=== PATIENT | female | born 2000 | race Hispanic/Latino ===

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

== ENCOUNTER 2019-05-10 15:00 | Emergency (ER) | payer MEDICAID, OTHER ==
[2019-05-10 15:55] LABS: APPEARANCE,URINE Cloudy (CLEAR); BILIRUBIN,URINE Negative (NEGATIVE); COLOR,URINE Yellow (YELLOW); GLUCOSE, URINE (UA) Negative (NEGATIVE); KETONES,URINE Negative (NEGATIVE); LEUKOCYTE ESTERASE ,URINE Moderate (NEGATIVE); NITRATE,URINE Negative (NEGATIVE); OCCULT BLOOD,URINE Negative (NEGATIVE); PROTEIN,URINE Negative (NEGATIVE)
[2019-05-10 16:01] LABS: HCG,QUAL RESULT POSITIVE (NEGATIVE)
[2019-05-10 16:26] LABS: BASOPHILS % (AUTO) 0.4 % (0.0-5.0); EOSINOPHILS % (AUTO) 9.3 % (0.0-8.0); HEMATOCRIT 40.1 % (36-48); LYMPHOCYTES % (AUTO) 21.8 % (21.0-51.0); MEAN CORPUSCULAR HEMOGLOBIN 28.3 pg (27.0-33.0); MEAN CORPUSCULAR HGB CONC 34.1 g/dL (32.0-36.0); MEAN CORPUSCULAR VOLUME 83.2 fL (80-100); NEUTROPHILS % (AUTO) 59.5 % (40.0-77.0); PLATELET COUNT (AUTO) 200 K/uL (130-400); RED BLOOD CELL COUNT(AUTO) 4.82 MIL/uL (4.00-5.50); RED CELL DISTRIBUTION WIDTH 14.1 % (11.0-15.5); WHITE BLOOD COUNT (AUTO) 8.4 K/uL (4.8-10.8)
[2019-05-10 16:38] LABS: CREATININE 0.7 mg/dL (0.5-1.5); POTASSIUM 3.9 mmol/L (3.5-5.1)
[2019-05-10 16:54] LABS: ALBUMIN 3.2 g/dL (3.5-5.0); BILIRUBIN,TOTAL 0.2 mg/dL (0.2-1.0); TOTAL PROTEIN, SERUM 6.5 g/dL (6.0-8.3)
[2019-05-10 16:56] LABS: BACTERIA,URINE Many /HPF (None Seen)
[2019-05-10 16:57] LABS: RBC,URINE None Seen /HPF (0-1)
[2019-05-10 17:22] LABS: AMPHET/METH SCREEN,URINE NEGATIVE (NEGATIVE); BARBITURATE SCREEN, URINE NEGATIVE (NEGATIVE); BENZODIAZEPINES SCREEN,URINE NEGATIVE (NEGATIVE); CANNABINOID SCREEN,URINE NEGATIVE (NEGATIVE); COCAINE SCREEN,URINE NEGATIVE (NEGATIVE); OPIATE SCREEN,URINE NEGATIVE (NEGATIVE); PHENCYCLIDINE SCREEN,URINE NEGATIVE (NEGATIVE)
== END 2019-05-10 17:42 | disposition home or self-care (01) ==
LOC: EDH 15:00
DX: O26.891 Other specified pregnancy related conditions, first trimester (principal); R10.32 Left lower quadrant pain; R19.7 Diarrhea, unspecified; J45.909 Unspecified asthma, uncomplicated; Z87.891 Personal history of nicotine dependence; Z3A.01 Less than 8 weeks gestation of pregnancy
CPT/HCPCS: 36415; 76801; 80053; 80305; 81001; 81025; 84702; 85025; 86850; 86900; 86901

== ENCOUNTER 2019-05-13 17:23 | Emergency (ER) | payer MEDICAID, OTHER ==
[2019-05-13 18:17] LABS: APPEARANCE,URINE Cloudy (CLEAR); BILIRUBIN,URINE Negative (NEGATIVE); COLOR,URINE Yellow (YELLOW); GLUCOSE, URINE (UA) Negative (NEGATIVE); KETONES,URINE Trace mg/dL (NEGATIVE); LEUKOCYTE ESTERASE ,URINE Moderate (NEGATIVE); NITRATE,URINE Negative (NEGATIVE); OCCULT BLOOD,URINE Negative (NEGATIVE); PH,URINE 5.5 (5.0-8.0); PROTEIN,URINE Negative (NEGATIVE)
[2019-05-13 19:00] LABS: BACTERIA,URINE Few /HPF (None Seen); MUCUS,URINE Few LPF (None Seen); SQUAMOUS EPITHELIAL CELL,UR Moderate /HPF (0-2)
== END 2019-05-13 19:13 | disposition home or self-care (01) ==
LOC: EDH 17:23
DX: O23.41 Unspecified infection of urinary tract in pregnancy, first trimester (principal); O99.511 Diseases of the respiratory system complicating pregnancy, first trimester; J45.909 Unspecified asthma, uncomplicated; Z3A.01 Less than 8 weeks gestation of pregnancy
CPT/HCPCS: 81001

== ENCOUNTER 2019-06-09 15:59 | Emergency (ER) | payer MEDICAID ==
[2019-06-09] MEDS ORDERED: ACETAMINOPHEN EXTRA STRENGTH 500 MG TABLET ONE (16:20)
[2019-06-09 17:32] LABS: RAPID GROUP A STREP NEGATIVE (NEGATIVE)
== END 2019-06-09 17:44 | disposition home or self-care (01) ==
LOC: EDH 15:59
DX: O99.511 Diseases of the respiratory system complicating pregnancy, first trimester (principal); J10.1 Influenza due to other identified influenza virus with other respiratory manifestations; J45.909 Unspecified asthma, uncomplicated; Z79.899 Other long term (current) drug therapy; Z3A.10 10 weeks gestation of pregnancy
CPT/HCPCS: 87804; 87880

== ENCOUNTER 2019-06-10 01:34 | Emergency (ER) | payer MEDICAID ==
[2019-06-10] MEDS ORDERED: ACETAMINOPHEN EXTRA STRENGTH 500 MG TABLET ONE (02:08)
[2019-06-10] MEDS ORDERED: ONDANSETRON HCL 4 MG/2 ML VIAL ONE (02:08)
[2019-06-10 03:11] LABS: BASOPHILS % (AUTO) 0.2 % (0.0-5.0); EOSINOPHILS % (AUTO) 0.5 % (0.0-8.0); HEMATOCRIT 35.2 % (36-48); LYMPHOCYTES % (AUTO) 9.9 % (21.0-51.0); MEAN CORPUSCULAR HEMOGLOBIN 27.3 pg (27.0-33.0); MEAN CORPUSCULAR HGB CONC 33.2 g/dL (32.0-36.0); MEAN CORPUSCULAR VOLUME 82.2 fL (80-100); MONOCYTES % (AUTO) 12.2 % (3.0-13.0); PLATELET COUNT (AUTO) 171 K/uL (130-400); RED BLOOD CELL COUNT(AUTO) 4.28 MIL/uL (4.00-5.50); RED CELL DISTRIBUTION WIDTH 13.4 % (11.0-15.5); WHITE BLOOD COUNT (AUTO) 4.3 K/uL (4.8-10.8)
[2019-06-10 03:26] LABS: CREATININE 0.6 mg/dL (0.5-1.5); POTASSIUM 3.5 mmol/L (3.5-5.1)
[2019-06-10 03:47] LABS: ALBUMIN 3.1 g/dL (3.5-5.0); BILIRUBIN,TOTAL 0.2 mg/dL (0.2-1.0)
== END 2019-06-10 04:44 | disposition home or self-care (01) ==
LOC: EDH 01:34
DX: O20.0 Threatened abortion (principal); O99.511 Diseases of the respiratory system complicating pregnancy, first trimester; O26.891 Other specified pregnancy related conditions, first trimester; E86.0 Dehydration; J10.1 Influenza due to other identified influenza virus with other respiratory manifestations; Z3A.10 10 weeks gestation of pregnancy; J45.909 Unspecified asthma, uncomplicated
CPT/HCPCS: 36415; 76801; 80053; 84702; 85025; 96361; 96374; 99285; J2405

== ENCOUNTER 2019-06-13 16:36 | Emergency (ER) | payer MEDICAID ==
[2019-06-13] MEDS ORDERED: ONDANSETRON HCL 4 MG/2 ML VIAL ONE (17:31)
[2019-06-13] MEDS ORDERED: SODIUM CHLORIDE 0.9% 1000ML 1,000 ML IV ONE (17:31)
[2019-06-13 17:37] LABS: BASOPHILS % (AUTO) 0.2 % (0.0-5.0); EOSINOPHILS % (AUTO) 1.4 % (0.0-8.0); HEMATOCRIT 39.9 % (36-48); LYMPHOCYTES % (AUTO) 48.7 % (21.0-51.0); MEAN CORPUSCULAR HEMOGLOBIN 27.2 pg (27.0-33.0); MEAN CORPUSCULAR HGB CONC 33.8 g/dL (32.0-36.0); MEAN CORPUSCULAR VOLUME 80.4 fL (80-100); MONOCYTES % (AUTO) 8.2 % (3.0-13.0); NEUTROPHILS % (AUTO) 41.3 % (40.0-77.0); PLATELET COUNT (AUTO) 205 K/uL (130-400); RED BLOOD CELL COUNT(AUTO) 4.96 MIL/uL (4.00-5.50); RED CELL DISTRIBUTION WIDTH 13.3 % (11.0-15.5); WHITE BLOOD COUNT (AUTO) 4.3 K/uL (4.8-10.8)
[2019-06-13 17:46] LABS: APPEARANCE,URINE Clear (CLEAR); BILIRUBIN,URINE Negative (NEGATIVE); COLOR,URINE Yellow (YELLOW); GLUCOSE, URINE (UA) Negative (NEGATIVE); KETONES,URINE Negative (NEGATIVE); LEUKOCYTE ESTERASE ,URINE Negative (NEGATIVE); NITRATE,URINE Negative (NEGATIVE); OCCULT BLOOD,URINE Negative (NEGATIVE); PROTEIN,URINE Negative (NEGATIVE); UROBILINOGEN,URINE 0.2 mg/dL (0.2-1.0)
[2019-06-13 17:50] LABS: INR 0.87 (0.85-1.15); PARTIAL THROMBOPLASTIN TIME 26.6 SEC (26.3-35.5); PROTHROMBIN TIME 9.2 SEC (9.6-11.6)
[2019-06-13 18:05] LABS: CREATININE 0.5 mg/dL (0.5-1.5); POTASSIUM 3.6 mmol/L (3.5-5.1)
[2019-06-13 18:31] LABS: ALBUMIN 3.5 g/dL (3.5-5.0); BILIRUBIN,TOTAL 0.2 mg/dL (0.2-1.0); TOTAL PROTEIN, SERUM 7.5 g/dL (6.0-8.3)
== END 2019-06-13 18:50 | disposition home or self-care (01) ==
LOC: EDH 16:36
DX: O21.0 Mild hyperemesis gravidarum (principal); O99.511 Diseases of the respiratory system complicating pregnancy, first trimester; J45.909 Unspecified asthma, uncomplicated; Z87.891 Personal history of nicotine dependence; Z3A.10 10 weeks gestation of pregnancy
CPT/HCPCS: 36415; 71045; 80053; 81003; 82550; 84484; 84702; 85025; 85610; 85730; 93005; 96361; 96374; 99285; J2405; J7030

== ENCOUNTER 2019-07-20 18:59 | Emergency (ER) | payer MEDICAID | END 2019-07-20 19:36 | disposition home or self-care (01) | LOC: EDH 18:59 | DX: O99.89 Other specified diseases and conditions complicating pregnancy, childbirth and the puerperium (principal); H10.9 Unspecified conjunctivitis; O99.512 Diseases of the respiratory system complicating pregnancy, second trimester; J45.909 Unspecified asthma, uncomplicated; Z3A.14 14 weeks gestation of pregnancy; Z79.899 Other long term (current) drug therapy ==

== ENCOUNTER 2019-09-23 20:59 | Emergency (ER) | payer MEDICAID ==
[2019-09-23] MEDS ORDERED: DIPHENHYDRAMINE HCL 25 MG CAPSULE ONE (21:12)
[2019-09-23] MEDS ORDERED: FAMOTIDINE/PF 20 MG/2 ML VIAL IV ONE (21:13)
== END 2019-09-23 22:14 | disposition home or self-care (01) ==
LOC: EDH 20:59
DX: O26.892 Other specified pregnancy related conditions, second trimester (principal); L50.1 Idiopathic urticaria; O99.512 Diseases of the respiratory system complicating pregnancy, second trimester; J45.909 Unspecified asthma, uncomplicated; Z3A.26 26 weeks gestation of pregnancy
CPT/HCPCS: 96374; 99283; J3490; Q0163

== ENCOUNTER 2020-06-09 10:20 | Emergency (ER) | payer MEDICAID ==
[2020-06-09] MEDS ORDERED: METHYLPREDNISOLONE SOD SUCC 125MG/2ML VIAL ONE (11:49)
[2020-06-09] MEDS ORDERED: IPRATROPIUM/ALBUTEROL SULFATE 3 ML SOLUTION IH ONE ×2 (12:08→14:14)
[2020-06-09 12:52] LABS: APPEARANCE,URINE CLOUDY (CLEAR); BILIRUBIN,URINE NEGATIVE (NEGATIVE); COLOR,URINE YELLOW (YELLOW); GLUCOSE, URINE (UA) NEGATIVE (NEGATIVE); HCG,QUAL RESULT NEGATIVE (NEGATIVE); KETONES,URINE NEGATIVE (NEGATIVE); LEUKOCYTE ESTERASE ,URINE SMALL (NEGATIVE); NITRATE,URINE NEGATIVE (NEGATIVE); OCCULT BLOOD,URINE NEGATIVE (NEGATIVE); PROTEIN,URINE NEGATIVE (NEGATIVE); UROBILINOGEN,URINE 0.2 mg/dL (0.2-1.0)
[2020-06-09 13:08] LABS: BACTERIA,URINE Rare /HPF (None Seen); MUCUS,URINE Moderate LPF (None Seen); RBC,URINE 0-1 /HPF (0-1); SQUAMOUS EPITHELIAL CELL,UR Many /HPF (0-2)
== END 2020-06-09 14:55 | disposition home or self-care (01) ==
LOC: EDH 10:20
DX: J45.31 Mild persistent asthma with (acute) exacerbation (principal); Z20.828 Contact with and (suspected) exposure to other viral communicable diseases; Z87.891 Personal history of nicotine dependence; Z98.890 Other specified postprocedural states
CPT/HCPCS: 81001; 81025; 87088; 87426; 94640 ×2; 96374; 99284; J2930; U0003

== ENCOUNTER 2020-06-09 22:37 | Emergency (ER) | payer MEDICAID ==
[2020-06-09] MEDS ORDERED: DEXAMETHASONE SOD PHOSPHATE 10MG/ML 1ML VIAL ONE (23:16)
[2020-06-09] MEDS ORDERED: ACETAMINOPHEN 325 MG TAB ONE (23:17)
[2020-06-09] MEDS ORDERED: ALBUTEROL SULFATE 0.083% 2.5 MG/3 ML INH IH ONE (23:38)
[2020-06-09 23:57] LABS: BASOPHILS % (AUTO) 0.1 % (0.0-5.0); HEMATOCRIT 35.4 % (36-48); LYMPHOCYTES % (AUTO) 4.4 % (21.0-51.0); MEAN CORPUSCULAR HEMOGLOBIN 20.7 pg (27.0-33.0); MEAN CORPUSCULAR HGB CONC 29.4 g/dL (32.0-36.0); MEAN CORPUSCULAR VOLUME 70.5 fL (80-100); MONOCYTES % (AUTO) 1.9 % (3.0-13.0); NEUTROPHILS % (AUTO) 93.3 % (40.0-77.0); PLATELET COUNT (AUTO) 351 K/uL (130-400); RED BLOOD CELL COUNT(AUTO) 5.02 MIL/uL (4.00-5.50); RED CELL DISTRIBUTION WIDTH 17.2 % (11.0-15.5); WHITE BLOOD COUNT (AUTO) 10.5 K/uL (4.8-10.8)
[2020-06-10 00:09] LABS: POTASSIUM 4.1 mmol/L (3.5-5.1)
[2020-06-10 00:17] LABS: ABG BASE EXCESS -5.2 mmol/L (-2.0-3.0); ABG HCO3 19.8 mmol/L (21.0-28.0); ABG OXYGEN SATURATION 94.2 % (95.0-99.0); ABG PCO2 37 mmHg (32-45)
[2020-06-10] MEDS ORDERED: ALBUTEROL SULFATE 0.083% 2.5 MG/3 ML INH IH ONE (01:26)
[2020-06-10] MEDS ORDERED: IOHEXOL-350 75 ML VIAL IV ONE (01:37)
== END 2020-06-10 02:49 | disposition home or self-care (01) ==
LOC: EDH 22:37
DX: J45.31 Mild persistent asthma with (acute) exacerbation (principal); Z20.828 Contact with and (suspected) exposure to other viral communicable diseases
CPT/HCPCS: 36415; 36600; 71045; 71275; 80048; 81001; 81025; 82803; 84702; 85025; 87088; 87426; 94640 ×4; 96372; 96374; 99284; 99285; J1100; J2930; Q9967; U0003

== ENCOUNTER 2021-01-19 10:11 | Emergency (ER) | payer MEDICAID ==
[2021-01-19 10:13] VITALS: BP 129/70
[2021-01-19] MEDS ORDERED: IPRATROPIUM/ALBUTEROL SULFATE 3 ML SOLUTION IH STA (14:10)
[2021-01-19] MEDS ORDERED: SOLU-MEDROL 125MG VIAL IVP ONE (14:30)
[2021-01-19] MEDS ORDERED: IPRATROPIUM/ALBUTEROL SULFATE 3 ML SOLUTION IH ONE (15:41)
[2021-01-19 16:13] LABS: APPEARANCE,URINE Clear (CLEAR); BILIRUBIN,URINE Negative (NEGATIVE); COLOR,URINE Yellow (YELLOW); GLUCOSE, URINE (UA) Negative (NEGATIVE); KETONES,URINE Negative (NEGATIVE); LEUKOCYTE ESTERASE ,URINE Small (NEGATIVE); NITRATE,URINE Negative (NEGATIVE); OCCULT BLOOD,URINE Negative (NEGATIVE); PROTEIN,URINE Negative (NEGATIVE); UROBILINOGEN,URINE 0.2 mg/dL (0.2-1.0)
[2021-01-19 16:16] LABS: HCG,QUAL RESULT NEGATIVE (NEGATIVE)
[2021-01-19 16:25] LABS: BACTERIA,URINE Few /HPF (None Seen); MUCUS,URINE Few LPF (None Seen); SQUAMOUS EPITHELIAL CELL,UR Few /HPF (0-2)
[2021-01-19] MEDS ORDERED: AUD IH (17:52)
[2021-01-19] MEDS ORDERED: PRED20TA3 PO (17:52)
[2021-01-19 18:22] VITALS: BP 124/78
== END 2021-01-19 18:23 | disposition home or self-care (01) ==
LOC: EDH 10:11
DX: J45.901 Unspecified asthma with (acute) exacerbation (principal); Z20.822 Contact with and (suspected) exposure to COVID-19; Z79.52 Long term (current) use of systemic steroids; Z79.899 Other long term (current) drug therapy
CPT/HCPCS: 71045; 81001; 81025; 87426; 87804 ×2; 87880; 94640; 96374; 99284; J2930

== ENCOUNTER 2025-05-17 17:24 | Emergency (ER) | payer SELFPAY ==
[~2025-05-17] VITALS: Ht 170.2 cm; Wt 95.7 kg
[~2025-05-17 17:24] MED LIST: AUD IH; PRED20TA3 PO
--- NOTE | 2025-05-17 17:38 | ERN ---
ED Note History of Present Illness Stated Complaint: ABDOMINAL PAIN Chief Complaint: Abdominal Pain Time Seen by MD: 17:25 Time Seen by Midlevel: 17:25 Dictation: The patient is a 24-year-old female with a history of asthma who presents to the emergency department with complaints of epigastric abdominal pain onset Monday. Patient reports she started with clear vomiting yesterday. Reports she has also had a productive cough and some congestion. Reports clear sputum. Patient reports she took an albuterol treatment before coming for her asthma. Denies any diarrhea or constipation, denies any fevers. Allergies: Coded Allergies: No Known Drug Allergies (Unverified Allergy, Unknown, 06/10/19) Home Meds Active Scripts Prednisone (Prednisone) 20 Mg Tablet, 1 TAB PO BID for asthma for 5 Days, #10 TAB 0 Refills TAKE 1 TAB BY MOUTH THREE TIMES PER DAY X3 DAYS, THEN TAKE 1 TAB BY MOUTH TWICE A DAY X2 DAYS, THEN TAKE 1 TAB BY MOUTH ONCE A DAY X1 DAY. Prov:RUDDY HELLER NP 01/19/21 Albuterol Sulfate (Albuterol Sulfate) 2.5 Mg/0.5 Ml Vial.neb, 2.5 MG IH Q4HPRN for asthma for 30 Days, #120 INH Prov:RUDDY HELLER NP 01/19/21 Past Medical History Past Medical History: Asthma Additional Past Medical Hx: ASTHMA Surgical History: Social History: Negative RN Note Reviewed/Agreed w/PFSH: Yes Review of System Dictation Constitutional: Negative for fever,chills, and weight loss Eyes: Negative for injury, pain,redness, and discharge ENT: Negative for injury,pain or swelling Cardiovascular: Negative for chest pain, palpitations, and edema Respiratory: Negative for shortness of breath,, and wheezing, positive for cough and congestion Abdomen/GI: Negative for diarrhea, and constipation positive for abdominal pain, nausea, vomiting Back: Negative for injury and pain : Negative for injury, bleeding and discharge MS/Extremity: Negative for injury and deformity Skin: Negative for rash, and discoloration Neuro: Negative for headache, weakness, numbness, tingling, and seizure Psych: Negative for suicide ideation, homicidal ideation, and hallucinations Initial Vital Sign VS Vital Signs Date Time Temp Pulse Resp B/P (MAP) Pulse Ox O2 Delivery O2 Flow Rate FiO2 05/17/25 17:25 98.8 122 18 119/77 99 Room Air 05/17/25 18:12 0 21 Physical Exam Dictation Vital Signs reviewed General Appearance: Alert, oriented x 3, no acute distress, well developed, nourished. Head and Face: non-traumatic. Eyes: PERRL, pink conjunctivas, eyelid no trauma, anterior chamber with arcus se nilis. Ears: Pinnas intact and no signs of trauma or erythema ear canals clear and no discharge TM no erythema Nose: No discharge, no bleeding. Oropharynx: Mouth normal, tongue pink. pharynx clear,no erythema, tonsils no exudates, no abscesses noted, mucous membrane moist Neck: Supple, non-tender, no thyromegaly, no masses, no JVD, no bruits Breast:Deferred Chest:No tenderness, no crepitus, no paradoxical movement, no retractions Lungs:Clear, well-ventilated, symmetric, no rales, no wheezing, no rhonchi, no stridor, good breath sounds bilaterally Heart: Regular rate, regular rhythm, no murmur, no gallops Vascular: no peripheral edema, Abdomen: Soft, positive bowel sounds, nondistended, no guarding, Generalized tenderness, no rebound, no masses no hepatomegaly, no splenomegaly, no Thomas's sign, no hernias. Rectal: Deferred Genital: Deferred Neurological: Normal speech, motor function intact, sensory function intact Musculoskeletal: Neck nontender, full range of motion, back nontender, full range of motion, Extremities: nontender, full range of motion Skin: Color pink, dry, no turgor, no rash, no lacerations, no abrasions, no contusions. Lymphatic: Deferred Results (Laboratory/Radiology) Laboratory/Radiology Laboratory Tests Test 05/17/25 17:43 05/17/25 17:53 White Blood Count 5.7 K/uL (4.8-10.8) Red Blood Count 5.11 MIL/uL (4.00-5.50) Hemoglobin 13.9 g/dL (12.0-16.0) Hematocrit 42.3 % (36-48) Mean Corpuscular Volume 82.8 fL (79-99) Mean Corpuscular Hemoglobin 27.2 pg (27.0-33.0) Mean Corpuscular Hemoglobin Concent 32.9 g/dL (32.0-36.0) Red Cell Distribution Width 13.6 % (11.0-15.5) Platelet Count 179 K/uL (130-400) Mean Platelet Volume 11.4 fL (7.5-10.5) H Immature Granulocyte % (Auto) 0.4 % (0-1) Neutrophils (%) (Auto) 84.5 % (40.0-77.0) H Lymphocytes (%) (Auto) 5.3 % (21.0-51.0) L Monocytes (%) (Auto) 9.6 % (3.0-13.0) Eosinophils (%) (Auto) 0.0 % (0.0-8.0) Basophils (%) (Auto) 0.2 % (0.0-5.0) Neutrophils # (Auto) 4.8 K/uL (1.8-7.7) Lymphocytes # (Auto) 0.3 K/uL (1.0-4.8) L Monocytes # (Auto) 0.6 K/uL (0.1-1.0) Eosinophils # (Auto) 0.00 K/uL (0.00-0.70) Basophils # (Auto) 0.01 K/uL (0.00-0.20) Absolute Immature Granulocyte (auto 0.02 K/uL (0-1) Nucleated Red Blood Cells 0.0 % (0.0-0.19) White Cell Morphology Comment See comments Sodium Level 139 mmol/L (136-145) Potassium Level 3.1 mmol/L (3.5-5.1) L Chloride Level 104 mmol/L (101-111) Carbon Dioxide Level 25 mmol/L (21-32) Blood Urea Nitrogen 6 mg/dL (7-18) L Creatinine 0.8 mg/dL (0.5-1.0) Glomerular Filtration Rate Calc 104 mL/min (>90) Random Glucose 84 mg/dL (70-105) Total Calcium 8.3 mg/dL (8.5-10.1) L Total Bilirubin 0.3 mg/dL (0.2-1.0) Direct Bilirubin 0.1 mg/dL (0.0-0.3) Aspartate Amino Transf (AST/SGOT) 20 U/L (10-37) Alanine Aminotransferase (ALT/SGPT) 25 U/L (12-78) Alkaline Phosphatase 49 U/L (50-136) L Troponin I High Sensitivity 4 ng/L (4-50) Total Protein 6.8 g/dL (6.0-8.3) Albumin 3.1 g/dL (3.5-5.0) L Lipase 17 U/L (16-77) Human Chorionic Gonadotropin, Quant 21217 mIU/mL (0-5) H Urine Color LIGHT-ORANGE (YELLOW) Urine Appearance TURBID (CLEAR) Urine pH 5.5 (5.0-8.0) Urine Specific [place] 1.033 (1.001-1.031) Urine Protein 50 mg/dL (NEGATIVE) H Urine Glucose (UA) NEGATIVE mg/dL (NEGATIVE) Urine Ketones NEGATIVE mg/dL (NEGATIVE) Urine Occult Blood NEGATIVE (NEGATIVE) Urine Nitrate NEGATIVE (NEGATIVE) Urine Bilirubin NEGATIVE mg/dL (NEGATIVE) Urine Urobilinogen 0.2 mg/dL (0.2-1.0) Urine Leukocyte Esterase 250 Fany/uL (NEGATIVE) H Urine RBC 6-10 /HPF (0-1) H Urine WBC 2-5 /HPF (0-1) H Urine Squamous Epithelial Cells FEW /HPF (0-2) Urine Other Crystals (Auto) 254 /HPF (None Seen) Urine Amorphous Crystals (Auto) MANY /LPF (None Seen) Urine Bacteria FEW /HPF (None Seen) Urine HCG, Qualitative POSITIVE (NEGATIVE) H Influenza Type A Antigen Positive For Type A Influenza Type B Antigen Negative For Type B SARS-CoV-2 Antigen (Rapid) PRESUMPTIVE NEGATIVE REASON: VAGINAL BLEEDING ORDERING PHYSICIAN: CHARLENE JACOBO PROCEDURE: OB <14 - US OB <14 WEEKS EXAM: US Obstetrical, Complete <14 weeks CLINICAL HISTORY: Patient presents with vaginal bleeding. TECHNIQUE: Transabdominal imaging of the maternal pelvis and a <14-week gestation with image documentation. COMPARISON: None provided. FINDINGS: GESTATION: Gestational age by LMP (03/24/2025): 7 weeks 5 days. Ultrasound gestational age: 5 weeks 2 days. The gestational sac diameter measures 1.77 cm, corresponding to 5 weeks 2 days. A sac-like structure is noted within the endometrial cavity. The heart rate and pole are not visualized at this time. UTERUS: The uterus measures 9.5 5.7 6.6 cm. Unremarkable. No myometrial mass. CERVIX: Closed. Unremarkable. OVARIES: The right ovary is obscured due to increased bowel gas. The left ovary measures 2.5 1.7 2.6 cm with normal flow. FREE FLUID: No free fluid in the cul-de-sac. IMPRESSION: Early intrauterine gestational sac corresponding to 5 weeks 2 days without a pole. Recommend serial quantitative beta-hCG and short interval follow-up. No free fluid. /[facility] Reviewed?: Yes EKG: (+) rhythm (Sinus tachycardia) EKG Comment: Date:05/17/2025 Time:1746 Ventricular rate:109 AR interval:140 QRS duration:96 QT/QTc:323/436 EKG interpretation: Sinus tachycardia, abnormal T-waves anterior leads Reviewed by ED Attending no STEMI ED Course ED Course Orders Procedure Category Date Status Time Cbc With Differential LAB 05/17/25 Complete 17:33 ,Urine Test LAB 05/17/25 Complete 17:33 Urinalysis Profile LAB 05/17/25 Complete 17:33 12 Lead Ekg Tracing- EKG 05/17/25 Complete Technical 17:33 0.9%Nacl 1000ml (Ns PHA 05/17/25 In Process 1000ml) 18:00 Ondansetron 4mg Inj PHA 05/17/25 In Process (Zofran 4mg Inj) 18:00 Pantoprazole 40mg Inj PHA 05/17/25 In Process (Protonix 40mg Inj 18:00 Lipase LAB 05/17/25 Complete 17:33 Basic Metabolic Panel LAB 05/17/25 Complete 17:33 Covid19 (Sars Antigen LAB 05/17/25 Complete Rapid) 17:33 Influenza Type A & B, LAB 05/17/25 Complete Rapid 17:33 Hepatic Function Panel LAB 05/17/25 Complete 17:33 Hcg,Quantitative LAB 05/17/25 Complete 18:10 Us Ob <14 Weeks US 05/17/25 Resulted 18:10 Culture Urine ELVIA 05/17/25 In Process 18:14 Potassium Chloride PHA 05/17/25 In Process 20meq Er (K-Dur/Klor- 18:30 Ceftriaxone 1g Vial PHA 05/17/25 In Process (Rocephine 1g Inj) 18:30 Oseltamivir Phosphate PHA 05/17/25 In Process (Tamiflu) 19:00 Troponin I High LAB 05/17/25 Complete Sensitivity 20:19 Current Medications Medications (Trade) Dose Ordered Sig/Eliza Route PRN Reason Start Time Stop Time Status Last Admin Dose Admin Ceftriaxone Sodium (ROCEphine 1G INJ) 1 gm ONCE IVPB 05/17/25 18:30 05/17/25 22:30 05/17/25 19:37 Ondansetron HCl (zoFRAN 4MG INJ) 4 mg ONCE IVP 05/17/25 18:00 05/17/25 22:00 05/17/25 18:51 Oseltamivir Phosphate (Tamiflu) 75 mg ONCE PO 05/17/25 19:00 05/17/25 23:30 05/17/25 19:37 Pantoprazole Sodium (PROTonix 40MG INJ) 40 mg ONCE IVP 05/17/25 18:00 05/17/25 22:00 05/17/25 18:50 Potassium Chloride (K-Dur/Klor-Con 20meq) 20 meq ONCE PO 05/17/25 18:30 05/17/25 22:30 05/17/25 18:52 Sodium Chloride 1,000 ml @ 0 mls/hr ONCE IV 05/17/25 18:00 05/17/25 22:00 05/17/25 18:50 Vital Signs Date Time Temp Pulse Resp B/P (MAP) Pulse Ox O2 Delivery O2 Flow Rate FiO2 05/17/25 20:56 99.0 98 16 106/58 99 Room Air* 0 05/17/25 19:14 99.0 102 20 98/52 98 Room Air* 0 05/17/25 18:12 100.0 111 18 103/57 97 Room Air* 0 05/17/25 17:25 98.8 122 18 119/77 99 Room Air Medical Decision Making MDM The patient is a 24-year-old female with a history of asthma who presents to the emergency department with complaints of epigastric abdominal pain onset Monday. Patient reports she started with clear vomiting yesterday. Reports she has also had a productive cough and some congestion. Reports clear sputum. Patient reports she took an albuterol treatment before coming for her asthma. Denies any diarrhea or constipation, denies any fevers. CBC showed no leukocytosis, no anemia, chemistry showed mild hypokalemia, normal renal function, negative lipase, negative liver enzymes, elevated hCG level, ur inalysis positive for leukocyte esterase, serology positive for influenza A. Ultrasound revealed intrauterine gestational sac of five weeks two days with no heart rate at this time. Probably related to early . Patient otherwise with no vaginal bleeding or discharge. Patient was not aware that she was . She is a . Reports her menstrual cycles are irregular. Patient was initially tachycardic but reports she had giving herself an albuterol treatment before coming which could have caused the tachycardia. Patient otherwise clear lung sounds. Spoke to patient about chest x-ray and risks and benefits. At this time patient did not want the x-ray. Patient treated with antibiotics for UTI and Tamiflu for the influenza. Patient instructed to follow up with OBGYN for further evaluation of her and repeat ultrasound and lab work. Patient agrees with discharge planning. Differential diagnosis: Upper respiratory infection, gastritis, gastroenteritis, dehydration Need for hospitalization: Patient does not meet criteria for hospitalization. There are no social concerns with this patient. DX & DISP Disposition: Discharge Departure Impression: Primary Impression: Influenza A Additional Impressions: UTI (urinary tract infection), 5 weeks gestation of , Hypokalemia Condition: Stable Scripts Cephalexin Monohydrate (Keflex) 500 Mg Cap 500 MG PO QID for 7 Days, #28 CAP Prov: CHARLENE JACOBO BPM SOLUTION ARCHITECT 05/17/25 Oseltamivir Phosphate (Tamiflu) 75 Mg Cap 75 MG PO BID for 5 Days, #10 CAP Prov: CHARLENE JACOBO BPM SOLUTION ARCHITECT 05/17/25 Additional Instructions: Your labs showed that you tested positive for influenza in you also have a urinary tract infection. Your ultrasound showed you were about five weeks but you will need to follow up with your OBGYN for a follow up ultrasound and your levels. If you develop severe abdominal pain, bleeding please return to ER. If anything worsens please return to ER. Otherwise follow up with your OBGYN as soon as possible. FOLLOW-UP WITH PRIMARY CARE PROVIDER IN 1 TO 2 DAYS. TAKE MEDICATIONS DIRECTED HERE IN THE EMERGENCY ROOM. OKAY TO CONTINUE HOME MEDICATIONS UNLESS OTHERWISE DISCUSSED DURING YOUR VISIT IN THE EMERGENCY ROOM TODAY. RETURN TO YOUR NEAREST EMERGENCY ROOM IF SYMPTOMS WORSEN OR IF THERE IS NO IMPROVEMENT. CALL 911 IF YOU NEED IMMEDIATE ASSISTANCE. TAKE TYLENOL [id number] NEEDED AND IF NO CONTRAINDICATIONS ARE PRESENT. INCREASE ORAL HYDRATION. A WOUND CULTURE OR URINE CULTURE WAS ORDERED HERE IN THE EMERGENCY ROOM DEPARTMENT PLEASE FOLLOW-UP WITH PRIMARY CARE PROVIDER AND ADVISE THEM TO GET REPEAT PORTS FROM OUR FACILITY. IF YOU HAD ANY DIEGO WRAP/SPLINTS THAT WERE APPLIED HERE, P RYAN DO NOT REMOVE THEM UNTIL YOU SEE YOUR PRIMARY CARE OR SPECIALTY. Referrals: TSERING BARAJAS MD (PCP) Time of Disposition: 21:03 I have reviewed the case, and I agree with, Diagnosis and Plan CHARLENE JACOBO [facility] May 17, 2025 17:38
--- NOTE | 2025-05-17 17:48 | EKG ---
[facility] Test Date: 2025-05-17 Test Time: 17:46:16 Pat Name: AMANDA WHITE Department: [facility] Room: Gender: F Internal Affairs Commander: [id number] : 2000 Requested By: CHARLENE JACOBO Order Number: [id number] Reading MD: Suraj Orellana Measurements Intervals [place] Rate: 109 P: 42 CA: 140 QRS: 58 QRSD: 96 T: -14 QT: 323 QTc: 436 Interpretive Statements Sinus tachycardia Abnormal T, consider ischemia, anterior leads Compared to ECG 06/13/2019 17:45:52 T-wave abnormality now present Possible ischemia now present Sinus rhythm no longer present Electronically Signed On 05-18-2025 09:33:25 TELEGRAPH PRINTER MECHANIC by Suraj Orellana Please click the below link to view image of tracing.
[2025-05-17 17:50] LABS: IMMATURE GRANULOCYTE ABSOLUTE 0.02 K/uL (0-1); NUCLEATED RED BLOOD CELLS 0.0 % (0.0-0.19); PLATELET COUNT (AUTO) 179 K/uL (130-400); RED BLOOD CELL COUNT(AUTO) 5.11 MIL/uL (4.00-5.50); RED CELL DISTRIBUTION WIDTH 13.6 % (11.0-15.5); WHITE BLOOD COUNT (AUTO) 5.7 K/uL (4.8-10.8)
[2025-05-17 18:06] LABS: ASPARTATE AMINOTRANSFERASE 20.0 U/L (10-37); CREATININE 0.8 mg/dL (0.5-1.0); GLOMERULAR FILTR. RATE CALC 104.0 mL/min (>90); GLUCOSE,RANDOM 84.0 mg/dL (70-105); SODIUM SERUM 139.0 mmol/L (136-145); TOTAL PROTEIN, SERUM 6.8 g/dL (6.0-8.3); UREA NITROGEN, BLOOD 6.0 mg/dL (7-18)
[2025-05-17 18:08] LABS: HCG,QUALITATIVE URINE POSITIVE (NEGATIVE)
[2025-05-17 18:13] LABS: APPEARANCE,URINE TURBID (CLEAR); GLUCOSE, URINE (UA) NEGATIVE (NEGATIVE); LEUKOCYTE ESTERASE ,URINE 250 Leu/uL (NEGATIVE); NITRATE,URINE NEGATIVE (NEGATIVE); OCCULT BLOOD,URINE NEGATIVE (NEGATIVE)
[2025-05-17 18:14] LABS: ADD UA MICROSCOPIC YES
[2025-05-17 18:16] LABS: SQUAMOUS EPITHELIAL CELL,UR FEW /HPF (0-2); UNCLASSIFIED CRYSTAL 254 /HPF (None Seen)
[2025-05-17 18:28] LABS: COVID19 (SARS ANTIGEN RAPID) PRESUMPTIVE NEGATIVE (NEGATIVE); INFLUENZA TYPE B Negative For Type B (NEGATIVE)
[2025-05-17 18:32] LABS: INFLUENZA TYPE A Positive For Type A (NEGATIVE)
[2025-05-17] MEDS: 0.9%NACL 1000ML 1,000 ML IV SCH (18:50)
[2025-05-17] MEDS: PoTASSium chloRIDE 20MEQ ER 20 MEQ ERTAB PO SCH (18:52)
--- NOTE | 2025-05-17 19:33 | HMCIMG ---
EXAM: US Obstetrical, Complete <14 weeks CLINICAL HISTORY: Patient presents with vaginal bleeding. TECHNIQUE: Transabdominal imaging of the maternal pelvis and a <14-week gestation with image documentation. COMPARISON: None provided. FINDINGS: GESTATION: Gestational age by LMP (03/24/2025): 7 weeks 5 days. Ultrasound gestational age: 5 weeks 2 days. The gestational sac diameter measures 1.77 cm, corresponding to 5 weeks 2 days. A sac-like structure is noted within the endometrial cavity. The heart rate and pole are not visualized at this time. UTERUS: The uterus measures 9.5 5.7 6.6 cm. Unremarkable. No myometrial mass. CERVIX: Closed. Unremarkable. OVARIES: The right ovary is obscured due to increased bowel gas. The left ovary measures 2.5 1.7 2.6 cm with normal flow. FREE FLUID: No free fluid in the cul-de-sac. IMPRESSION: Early intrauterine gestational sac corresponding to 5 weeks 2 days without a pole. Recommend serial quantitative beta-hCG and short interval follow-up. No free fluid. /[place]
[2025-05-17] MEDS: OSELTAMIVIR PHOSPHATE 75 MG CAP PO SCH (19:37)
[2025-05-17 20:56] VITALS: BP 106/58; PULSE 98; RESP 16; TEMP 99; O2SAT 99
[2025-05-17] MEDS ORDERED: CEPH500B PO (21:04)
[2025-05-17] MEDS ORDERED: OSEL75 PO (21:04)
== END 2025-05-17 21:51 | disposition home or self-care (01) ==
LOC: EDH 17:24
DX: O99.511 Diseases of the respiratory system complicating pregnancy, first trimester (principal); J10.1 Influenza due to other identified influenza virus with other respiratory manifestations; R10.20 Pelvic and perineal pain unspecified side; J45.909 Unspecified asthma, uncomplicated; N39.0 Urinary tract infection, site not specified; E87.6 Hypokalemia; Z79.52 Long term (current) use of systemic steroids; Z3A.01 Less than 8 weeks gestation of pregnancy; Z79.899 Other long term (current) drug therapy; Z20.822 Contact with and (suspected) exposure to COVID-19
CPT/HCPCS: 99285; 96365; 76801; 96367; 87426; 80076; 84484; 80048; 84702; 83690; 85025; 87086; 87804 ×2; 81001; 81025; 36415; 96368; 93005; J7030; J0696; J2405; J2470